=== PATIENT | female | born 1965 | race Caucasian/White ===

== ENCOUNTER 2017-06-10 08:35 | Emergency (ER) | payer OTHER ==
[~2017-06-10] VITALS: Ht 162.6 cm; Wt 68.0 kg
[2017-06-10] MEDS ORDERED: ADENOSINE 6 MG/2 ML VIAL. IV ONE ×3 (08:45→09:00)
[2017-06-10] MEDS ORDERED: IV NORMAL SALINE 1000ML BAG 1,000 ML IV SCH (08:54)
[2017-06-10] MEDS ORDERED: 0.9 % SODIUM CHLORIDE 10 ML DISP.SYRIN. IV PRN (09:00)
[2017-06-10] MEDS ORDERED: ASPIRIN CHEWABLE 81 MG TABLET. PO ONE (09:00)
[2017-06-10 09:05] LABS: BASO # 0.1 x10^3/uL (0.0-0.2); BASO % 1 % (0-3); EOS % 4 % (0-3); HEMATOCRIT 43.1 % (36.0-47.0); HEMOGLOBIN 15.1 g/dL (12.0-15.5); LYMPH # 3.2 x10^3/uL (1.0-4.8); LYMPH % 36 % (24-48); MEAN CORPUSCULAR HEMOGLOBIN 31 pg (25-35); MEAN CORPUSCULAR HGB CONC 35 g/dL (31-37); MEAN CORPUSCULAR VOLUME 89 fL (79-100); MONO % 10 % (0-9); NEUT % 51 % (31-73); PLATELET COUNT 345 x10^3/uL (140-400); RED BLOOD COUNT 4.87 x10^6/uL (3.50-5.40); RED CELL DISTRIBUTION WIDTH 12.5 % (11.5-14.5)
--- NOTE | 2017-06-10 09:16 | PHYS DOC ---
Past Medical History Past Medical History: No Pertinent History Past Surgical History: , Tubal ligation Smoking: Cigarettes, Greater than 1 pack/day Alcohol Use: Occasionally Drug Use: None Adult General Chief Complaint Chief Complaint: RAPID HEART RATE HPI HPI Patient is a pleasant 52-year-old female with no major medical proms other than prior episodes of SVT who presents with sudden onset of dizziness with palpitations. Patient with sooner normal state of health when while showering this morning he bent over to pick some up the ground. Immediate increased pulse rate and became in [place] increasingly dizzy. She describes no chest pain just chest tightness with palpitations she feels very anxious nauseated without vomiting. Patient denies any fever, direct trauma, denies any consumption of consuming caffeine products or drugs. Patient that she's had increased stress over her job and the passing of her father recently. Patient denies any long trips, history of lower leg swelling or edema, history of estrogen use, or prior history of DVT or PE. Differential diagnosis for chest pain: Pericarditis, myocarditis, endocarditis, pneumothorax, pneumonia, aortic dissection, esophageal spasm, esophagitis, peptic ulcer disease, acute coronary syndrome, mediastinitis, Boerhaave syndrome , musculoskeletal chest wall pain, costochondritis, intercostal strain, rib fracture, pulmonary contusion, pneumonitis, pleural effusion, pericardial effusion, pericardial tamponode, and pleurisy. Considered upon arrival. Given her heart rate of 183 I believe this is SVT. Patient also be screened for hyerthyroidism, and other electrolyte abnormalities that would cause tachydysrhythmias. Review of Systems Review of Systems Constitutional: Denies fever or chills [] Eyes: Denies change in visual acuity, redness, or eye pain [] HENT: Denies nasal congestion or sore throat [] Respiratory: She only has mild shortness of breath secondary to the tachycardia Cardiovascular: No additional information not addressed in HPI [] GI: Denies abdominal pain, nausea, vomiting, bloody stools or diarrhea [] : Denies dysuria or hematuria [] Musculoskeletal: Denies back pain or joint pain [] Integument: Denies rash or skin lesions [] Neurologic: Denies headache, focal weakness or sensory changes she has had mild dizziness with symptoms. She is also very anxious Endocrine: Denies polyuria or polydipsia [] Current Medications Current Medications Current Medications Medications (Trade) Dose Ordered Sig/Dario Start Time Stop Time Status Last Admin Dose Admin Adenosine (Adenocard) 6 mg 1X ONCE 06/10/17 09:00 06/10/17 09:01 DC 06/10/17 08:50 6 MG Aspirin (Children'S Aspirin) 324 mg 1X ONCE 06/10/17 09:00 06/10/17 09:01 DC Sodium Chloride (Normal Saline Flush) 10 ml QSHIFT PRN 06/10/17 09:00 Allergies Allergies Allergies Coded Allergies Type Severity Reaction Last Updated Verified meperidine Allergy Unknown 02/02/15 Yes morphine Adverse Reaction Intermediate nausea and vomiting 06/10/17 Yes Physical Exam Physical Exam Auto signs reviewed upon arrival noted to be hypotensive and very tachycardic in the 180s upon arrival Constitutional: Well developed, well nourished, she is a very uncomfortable she is in acute distress based on tachycardia. HENT: Normocephalic, atraumatic, bilateral external ears normal, oropharynx moist, no oral exudates, nose normal. [] Eyes: PERRLA, EOMI, conjunctiva normal, no discharge. [] Neck: Normal range of motion, no tenderness, supple, no stridor. [] Cardiovascular: Regular rhythm patient very tachycardic in the 180s. Lungs & Thorax: Bilateral breath sounds clear to auscultation [] Abdomen: Bowel sounds normal, soft, no tenderness, no masses, no pulsatile masses. [] Skin: Warm, dry, no erythema, no rash. [] Back: No tenderness, no CVA tenderness. [] Extremities: No tenderness, no cyanosis, no clubbing, ROM intact, no edema. [] Neurologic: Alert and oriented X 3, normal motor function, normal sensory function, no focal deficits noted. [] Psychologic: Patient is very anxious but cognition is intact. Current Patient Data Vital Signs Vital Signs Date Time Temp Pulse Resp B/P (MAP) Pulse Ox O2 Delivery O2 Flow Rate FiO2 06/10/17 08:38 98.3 181 24 89/63 (72) 100 Room Air 98.3 Lab Values Laboratory Tests Test 06/10/17 08:44 06/10/17 09:30 White Blood Count 9.0 x10^3/uL (4.0-11.0) Red Blood Count 4.87 x10^6/uL (3.50-5.40) Hemoglobin 15.1 g/dL (12.0-15.5) Hematocrit 43.1 % (36.0-47.0) Mean Corpuscular Volume 89 fL (79-100) Mean Corpuscular Hemoglobin 31 pg (25-35) Mean Corpuscular Hemoglobin Concent 35 g/dL (31-37) Red Cell Distribution Width 12.5 % (11.5-14.5) Platelet Count 345 x10^3/uL (140-400) Neutrophils (%) (Auto) 51 % (31-73) Lymphocytes (%) (Auto) 36 % (24-48) Monocytes (%) (Auto) 10 % (0-9) H Eosinophils (%) (Auto) 4 % (0-3) H Basophils (%) (Auto) 1 % (0-3) Neutrophils # (Auto) 4.6 x10^3uL (1.8-7.7) Lymphocytes # (Auto) 3.2 x10^3/uL (1.0-4.8) Monocytes # (Auto) 0.9 x10^3/uL (0.0-1.1) Eosinophils # (Auto) 0.3 x10^3/uL (0.0-0.7) Basophils # (Auto) 0.1 x10^3/uL (0.0-0.2) Sodium Level 141 mmol/L (136-145) Potassium Level 4.3 mmol/L (3.5-5.1) Chloride Level 107 mmol/L (98-107) Carbon Dioxide Level 24 mmol/L (21-32) Anion Gap 10 (6-14) Blood Urea Nitrogen 15 mg/dL (7-20) Creatinine 0.7 mg/dL (0.6-1.0) Estimated GFR (Cockcroft-Gault) 87.5 Glucose Level 119 mg/dL (70-99) H Calcium Level 8.6 mg/dL (8.5-10.1) Magnesium Level 1.9 mg/dL (1.8-2.4) Total Bilirubin 0.3 mg/dL (0.2-1.0) Direct Bilirubin < 0.1 mg/dL (0.0-0.2) Aspartate Amino Transferase (AST) 22 U/L (15-37) Alanine Aminotransferase (ALT) 25 U/L (14-59) Alkaline Phosphatase 76 U/L (46-116) Creatine Kinase 86 U/L (26-192) Creatine Kinase MB (Mass) 0.8 ng/mL (0.0-3.6) Creatine Kinase MB Relative Index 0.9 % (0-4) Troponin I Quantitative < 0.017 ng/mL (0.000-0.055) WG-Mzr-U-Type Natriuretic Peptide 47 pg/mL (0-124) Total Protein 7.0 g/dL (6.4-8.2) Albumin 3.8 g/dL (3.4-5.0) Lipase 250 U/L (73-393) Thyroid Stimulating Hormone (TSH) 1.782 uIU/mL (0.358-3.74) Urine Collection Type Void Urine Color Yellow Urine Clarity Cloudy Urine pH 7.0 Urine Specific [place] <=1.005 Urine Protein Negative mg/dL (NEG-TRACE) Urine Glucose (UA) Negative mg/dL (NEG) Urine Ketones (Stick) Negative mg/dL (NEG) Urine Blood Large (NEG) Urine Nitrite Negative (NEG) Urine Bilirubin Negative (NEG) Urine Urobilinogen Dipstick 0.2 mg/dL (0.2 mg/dL) Urine Leukocyte Esterase Negative (NEG) Urine RBC 1-2 /HPF (0-2) Urine WBC Occ /HPF (0-4) Urine Squamous Epithelial Cells Many /LPF Urine Amorphous Sediment Present /HPF Urine Bacteria Few /HPF (0-FEW) Laboratory Tests 06/10/17 08:44 Laboratory Tests 06/10/17 08:44 EKG EKG Initial EKG timed 8:40 AM demonstrates SVT with a heart rate of 183 QRS is narrow at 70 but very regular QTC is 432. Read by Dr. Ramos Second EKG timed 8:53 AM after 6 mg and 12 mg of Adenocard and attempted Valsalva maneuver 2 patient's second EKG timed 8:[address] Ramos demonstrates sinus tachycardia with a heart rate of 118 [place] interval of 112 QRS narrow at 74 QTC at 417. Is no ST segment T-wave inversions consistent with acute coronary ischemia. Radiology/Procedures Radiology/Procedures []x timed 10:[address] Ramos PA lateral chest film demonstrates no infiltrates, normal cardiac shadow, no mediastinal mass or no pneumonia no pneumothorax. Course & Med Decision Making Course & Med Decision Making Pertinent Labs and Imaging studies reviewed. (See chart for details) this is a pleasant patient presented with SVT with a heart rate of greater than 180. She was converted with Valsalva maneuvers and Adenocard. Over the course of her evaluation her symptoms have relieved and that she is in normal sinus rhythm with a rate of 82. Her laboratory work as been reviewed and unremarkable. Her TSH level is normal. Her troponin is negative. She has no electrolyte abnormalities of the continuing to her cardiac dysrhythmia. At this point patient is symptom free not short of breath with no history of an risk factors for PE. She is not anxious and her chest is clear. Chief Contract Officer note: Sifter Operator called at of the service Dr. Madrigal paged at 10:12 am Consult called back at 10:18 AM Discussed the case I presented and they agreed with admission. Time of acceptance [] Impression: Palpitations and SVT converted with Adenocard. Disposition: PCP follow-up and referral to Dr. Adam Hernandez cardiology who is happy to see her in his clinic. Precautions are given patient taught some MANEUVERS. I spent approximately 45-50 minutes working and engaged directly in the patient care providing critical care evaluation this includes but not limited to time spent engaged in work directly related to the individual patients care. I spent time at the bedside, reviewing test results, discussing the case with staff, documenting the medical record and time spent with EMS discussing specific treatment issues when the patient presented and during his evaluation. Dragon Disclaimer Dragon Disclaimer This electronic medical record was generated, in whole or in part, using a voice recognition dictation system. Departure Departure Impression: Primary Impression: SVT (supraventricular tachycardia) Disposition: 01 HOME, SELF-CARE Condition: IMPROVED Referrals: ADAM MADRIGAL MD Patient Instructions: Supraventricular Tachycardia Additional Instructions: Is return immediately for any return of her palpitations that you cannot break without several maneuvers is taught at the bedside. Return for any chest pain or shortness but that is new in nature or given any question concerns about. These follow-up with Dr. Hernandez by calling his office this week and there was scheduled for an appointment as an outpatient to continue evaluation and treatment of your SVT. AIDA RAMOS MD Jun 10, 2017 09:16
[2017-06-10 09:29] LABS: ANION GAP 10 (6-14); BLOOD UREA NITROGEN 15 mg/dL (7-20); CALCIUM 8.6 mg/dL (8.5-10.1); CARBON DIOXIDE 24 mmol/L (21-32); CHLORIDE 107 mmol/L (98-107); CREATININE 0.7 mg/dL (0.6-1.0); GFR 87.5; GLUCOSE 119 mg/dL (70-99); POTASSIUM 4.3 mmol/L (3.5-5.1); SODIUM 141 mmol/L (136-145)
[2017-06-10] MEDS ORDERED: GABA-587 PO (09:32)
[2017-06-10 09:35] LABS: ALBUMIN 3.8 g/dL (3.4-5.0); ALK PHOS 76 U/L (46-116); ALT (SGPT) 25 U/L (14-59); AST (SGOT) 22 U/L (15-37); DIRECT BILIRUBIN < 0.1 mg/dL (0.0-0.2); MAGNESIUM 1.9 mg/dL (1.8-2.4); TOTAL BILIRUBIN 0.3 mg/dL (0.2-1.0)
[2017-06-10 09:38] LABS: BILIRUBIN,URINE NEGATIVE (NEG); GLUCOSE,URINE NEGATIVE (NEG); NITRITE,URINE NEGATIVE (NEG); PROTEIN,URINE NEGATIVE (NEG-TRACE); UROBILINOGEN,URINE 0.2 mg/dL (0.2 mg/dL)
[2017-06-10 09:42] LABS: CKMB MASS 0.8 ng/mL (0.0-3.6)
[2017-06-10 09:47] LABS: BACTERIA,URINE FEW /HPF (0-FEW); SQUAMOUS EPITHELIAL CELL,UR MANY /LPF; WBC,URINE OCC /HPF (0-4)
[2017-06-10 10:30] VITALS: BP 98/71
--- NOTE | 2017-06-10 10:34 | RAD ---
Indication tachyarrhythmia. PA and lateral views of the chest were obtained. No prior imaging of the chest is available. The heart and pulmonary vessels are normal. The lungs are clear. There is no pleural fluid or pneumothorax. The visualized bony structures appear unremarkable. IMPRESSION: No acute or focal process seen in the chest
--- NOTE | 2017-06-10 10:49 | EKG ---
[facility] [address] [place] [address] Test Date: 2017-06-10 Test Time: 08:40:00 Pat Name: DEVYN PATEL Department: Room: Gender: F Fitness Manager: : 1965 Requested By: AIDA RAMOS Order Number: [id number] Reading MD: Adeel Bernal Measurements Intervals [place] Rate: 183 P: LA: QRS: 48 QRSD: 70 T: 49 QT: 246 QTc: 432 Interpretive Statements SUPRAVENTRICULAR TACHYCARDIA NO SPECIFIC ECG ABNORMALITIES Electronically Signed On 06-23-2017 14:15:24 CDT by Adeel Bernal
--- NOTE | 2017-06-10 11:04 | EKG ---
[facility] [address] [place] [address] Test Date: 2017-06-10 Test Time: 08:53:32 Pat Name: DEVYN PATEL Department: Room: Gender: F Pediatric Allergist: : 1965 Requested By: AIDA RAMOS Order Number: [id number] Reading MD: Adeel Bernal Measurements Intervals [place] Rate: 118 P: 13 NV: 112 QRS: 65 QRSD: 74 T: 56 QT: 296 QTc: 417 Interpretive Statements SINUS TACHYCARDIA Electronically Signed On 06-23-2017 14:16:11 CDT by Adeel Bernal
== END 2017-06-10 11:03 | disposition home or self-care (01) ==
LOC: ER 08:35
DX: I47.1 Supraventricular tachycardia (principal); F17.210 Nicotine dependence, cigarettes, uncomplicated; Z98.51 Tubal ligation status; Z88.5 Allergy status to narcotic agent
CPT/HCPCS: 36415; 71020; 80048; 80076; 81001; 82553; 83690; 83735; 83880; 84443; 84484; 85027; 93005; 96361; 96374; 99285; J0153; J7030; 96376

== ENCOUNTER → 2017-09-03 | Outpatient (CLI) | payer OTHER ==
[~2017-09-03] MED LIST: GABA-587 PO
--- NOTE | 2017-09-03 09:01 | KCIC ---
MRI left shoulder without contrast dated 09/03/2017 8:00 AM Indication: Pain palpable lump near AC joint intermittent swelling. Comparison: No comparison is available. Technique: Routine multiplanar multisequence imaging performed. . Findings: Moderate hypertrophic change of the acromioclavicular joint with mild edema within the marrow of the distal clavicle. There are some mild erosive changes along the articular margins. Acromium is type II morphology. No significant subacromial/subdeltoid bursal fluid. Intermediate T2 signal throughout the supraspinatus and infraspinatus portions of the rotator cuff. There is some mild interstitial partial tearing of the supraspinatus footplate with intact bursal and articular surface fibers. No full thickness tear or cuff retraction. Subscapularis is intact. Intermediate T2 signal within the substance of the long head biceps tendon proximally. Extra articular portion courses within the bicipital groove. Biceps anchor intact. Glenoid labrum is grossly intact. No apparent labral tear or para labral cyst. No glenoid cartilage defect. No joint effusion or loose body. Suprascapular and spinoglenoid notches are clear. No surrounding muscle edema or muscle atrophy. IMPRESSION: 1. Moderate AC joint arthropathy with some erosive changes of the distal clavicle and mild edema within the marrow of the distal clavicle. Underlying clavicular osteolysis cannot be excluded. Consider repetitive microtrauma or inflammatory arthropathy. 2. Rotator cuff tendinopathy with mild interstitial partial tearing of the central supraspinatus footplate. No full-thickness tear or cuff retraction. 3. Mild biceps tendinosis. 4. No apparent labral tear. Electronically signed by: Cas Daniels MD (09/03/2017 8:57 AM) [id number]
== END | disposition home or self-care (01) ==
LOC: KCIC MRI 07:44
PROVIDERS: ATTEND Physician Assistant Surgical
DX: M19.012 Primary osteoarthritis, left shoulder (principal); M75.102 Unspecified rotator cuff tear or rupture of left shoulder, not specified as traumatic; D48.1 Neoplasm of uncertain behavior of connective and other soft tissue
CPT/HCPCS: 73221